=== PATIENT | male | born 1985 | race Caucasian/White ===

== ENCOUNTER 2019-12-13 07:04 | Emergency (ER) | payer OTHER, SELFPAY ==
[2019-12-13 07:10] VITALS: BP 120/79; PULSE 88; RESP 17; TEMP 36.9; O2SAT 100; BMI 31.0
--- NOTE | 2019-12-13 07:11 | [facility].EDGENADL ---
ED Disposition Clinical Impression: Low back pain with sciatica Qualifiers: Chronicity: acute Back pain laterality: left Sciatica laterality: sciatica of left side Qualified Code(s): M54.42 - Lumbago with sciatica, left side Disposition: Home, Self-Care Condition on Discharge: Good Instructions: DI for Back Pain With Sciatica Additional Instructions: Additional instructions for BACK PAIN: See your physician as soon as possible for further evaluation. Return immediately if back pain becomes intolerable, or if fever, numbness or weakness of your legs, loss of control of your bowels or bladder. Additional instructions for CONTROLLED SUBSTANCES: You have been prescribed a medication that is a controlled substance. Controlled substances include pain medications known as opiates and sedative nerve medications known as benzodiazepines. Tramadol, fioricet, and gabapentin are also controlled substances. Some common opiates include: Codeine (such as Tylenol #3) Hydrocodone (Vicodin, Lortab, Lorcet, Galvin) Oxycodone (Percocet, Percodan, Oxycodone, Oxy IR) Some common benzodiazepines include: Diazepam (Valium) Lorazepam (Ativan) Alprazolam (Xanax) Clonazepam (Klonopin) Oxazepam (Serax) All of these controlled substances are highly addictive and frequently abused. Misuse can and frequently does lead to addiction as well as overdose and . Medication should be stored in a locked cabinet or other secure storage unit. Do not store the medication in a motor vehicle. Short term supplies, 3 days or less, are prescribed because of the highly addictive nature of the medication. Any of the controlled substance medication NOT taken should be disposed of properly and NOT SAVED. The recommended method of disposing of unused medications is: Place the medicines in a sealable plastic bag. If the medicine is a solid, crush it or add water to dissolve it. Add something undesirable (cat litter, coffee grounds, etc.) Dispose of sealed bag in household trash Do not flush or pour unused medicines down a sink or drain. Controlled substances should not be shared, given away or sold. Because of the addictive nature and frequent abuse, these medications are sometimes stolen. These medications should be kept in a safe place where they cannot be stolen. Do not keep them in your car or purse. Lost or stolen prescriptions for controlled substances WILL NOT BE REFILLED in this emergency department, regardless of whether a police report was filed. Prescriptions: Oxycodone HCl/Acetaminophen [Percocet 5/325mg tablet] 1 tab PO Q6HP PRN #10 tab PRN Reason: Moderate To Severe Pain Transmission Status: Received by [facility] predniSONE [Prednisone 20mg Tab] 20 mg PO BID #10 tab Transmission Status: Received by [facility] Referrals: PCP,No [Primary Care Provider] - Forms: Work/School Release - Critical Care Critical Care Time: No Attestation: On , the high probability of a clinically significant, sudden or life threatening deterioration of the following system(s) required my full and direct attention, intervention and personal management. The time I documented below is in addition to time spent performing reported procedures but includes the following listed in this critical care notation. Medical Decision Making - Medical Records Medical records reviewed: Yes: I reviewed the patient's medical records. - Davion Inquiry Pt receiving controlled substance: Yes Davion was queried for this patient: Yes Reference #:: [id number] Risks and benefits of using a controlled substance: were discussed with pt by me Comment: 0 rxs. Vital Signs: 12/13/19 07:10 Temperature 98.5 F Temperature Source Oral Pulse Rate [Right Radial] 88 Respiratory Rate 17 Blood Pressure [Right Arm] 120/79 Blood Pressure Mean [Right Arm] 92 02 Sat by Pulse Oximetry 100 Oxygen Delivery Method Room Air Orders (Tests/Meds): ED MEDICATIO
--- NOTE | 2019-12-13 07:20 | XR_ITS ---
PROCEDURE: XR LUMBAR SPINE MIN 4V Patient Age:33Y CLINICAL INDICATION: back pain with left sciatica Left-sided back pain one year now becoming worse over past few days. COMPARISON: No exams were available for comparison FINDINGS: Lumbar spine series five view: AP, lateral, both obliques and lateral lumbosacral spot view Lumbar vertebral bodies intact. No compression fractures.. Normal alignment. Disc spaces are well maintained. Pedicles intact. Transverse processes appear intact.. No pars defects. Facets unremarkable no obvious urinary tract calculi on this plain film. . IMPRESSION: Lumbar spine intact, unremarkable. No acute findings. Dictated by: Santo Greer MD 12/13/2019 12:55 Electronically signed by Santo Greer MD in [place] 12/13/2019 12:55
[2019-12-13 07:59] VITALS: BP 120/74; PULSE 83; RESP 16; TEMP 36.9; O2SAT 100
== END 2019-12-13 08:00 | disposition home or self-care (01) ==
PROVIDERS: Emergency Provider Emergency Medicine
DX: M54.42 Lumbago with sciatica, left side (principal)
CPT/HCPCS: 72110; 99282